=== PATIENT | male | born 1960 | race Caucasian/White ===

== ENCOUNTER 2016-10-27 18:39 | Inpatient (IN) | payer OTHER ==
[~2016-10-27] VITALS: Ht 177.8 cm; Wt 49.6 kg
--- NOTE | ~2016-10-27 | CON ---
[place], [place] REPORT OF CONSULTATION NAME: JOAO [facility]ERRELL [facility]: [id number] UNIT #: [id number] ROOM: [facility] DOCTOR: YANNI MIXON ED.D) BIRTHDATE: [birth year] DOS: 10/28/2016 HISTORY OF PRESENT ILLNESS: The patient is a 56-year-old male referred by the hospitalist for competency evaluation. At the present time, this patient is on the 4th floor at [facility]. He is and has 2 children. According to his mother who is still living along with his father, the patient's left him many years ago and he has been depressed and drinking excessively since that time. His last family physician is Dr. Helms and his medical history is pertinent for alcohol dependence, COPD, asthma and depression and altered mental status. He drinks excessively, although he will not admit how much he does smoke. This patient was awake, alert and oriented to person only. [facility] indicated [facility] and the year was [facility]. I spoke extensively to his mother. She stated that several weeks ago, he was fine and he has a tendency to drink excessively and then quit drinking and then he will become very confused. His apartment apparently was in quite deplorable condition. He has been apparently evicted from his apartment. His brother, Charles, also looks after the patient. He will most likely need a place to live and I did discuss this with case management services here at the hospital. He is clearly not competent to make informed healthcare decisions and all decision should be deferred to his family. In my opinion, due to his depression, he most likely would be a candidate for the [facility] once he is medically stable. I did discuss this with the hospitalist and made the recommendation. 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 He apparently has no contact with his children, according to him. DIAGNOSES: 1. Alcohol withdrawal delirium. 2. Major depressive disorder, recurrent. RECOMMENDATIONS: 1. In my opinion, this patient may benefit from the [facility] once he is medically stable. 2. If he does not need inpatient Behavioral Health, he should be referred to outpatient drug and alcohol along with Mental Health Services. Thank you very much for this consult. YANNI MIXON ED.D CM:CONSTR:REPORT OF CONSULTATION 1208 10/28/16 2353 interface
[~2016-10-27 18:39] MED LIST: CLINDAMYCIN HC300 MG PO; HYDROCODONE BIT1 T11 PO; KEFLEX125 MG/5 M PO; NAPROSYN500 MG PO; NORCO 325 MG-51 TAB PO; PEN-VK500 MG PO
[2016-10-27 19:14] VITALS: BP 97/69
[2016-10-27 20:01] VITALS: BP 96/71
[2016-10-27 20:05] LABS: BASO % 0.4 % (0.0-1.0); EOS % 0.1 % (1.0-4.0); HEMATOCRIT 37.6 % (42.0-52.0); HEMOGLOBIN 13.5 g/dl (14.0-18.0); LYMPH # 0.7 10*3/uL (1.3-4.4); LYMPH % 10.8 % (27.0-41.0); MEAN CELL VOLUME 100.5 fl (80.0-94.0); MEAN CORPUSCULAR HGB 36.1 pg (27.0-31.0); MEAN CORPUSCULAR HGB CONC 35.9 g/dl (33.0-37.0); MEAN PLATELET VOLUME 9.2 fl (9.6-12.3); MONO # 0.3 10*3/uL (0.1-1.0); MONO % 4.7 % (3.0-9.0); NEUT # 5.7 10*3/uL (2.3-7.9); NEUT % 83.6 % (47.0-73.0); PLATELET COUNT AUTOMATED 295 10*3/uL (130-400); RED BLOOD COUNT 3.74 10*6/uL (4.50-5.90); RED CELL DISTRI WIDTH 12.7 % (0-14.5); WHITE BLOOD COUNT 6.8 10*3/uL (4.8-10.8)
[2016-10-27 20:22] LABS: ALBUMIN 3.1 gm/dl (3.1-4.5); ALKALINE PHOSPHATASE 123 U/L (45-117); BUN 12 mg/dl (7-24); CARBON DIOXIDE 20 mmol/L (21-32); CHLORIDE 94 mmol/L (98-107); CKMB 0.8 ng/ml (0.5-3.6); CPK 45 U/L (39-308); EST GLOM FILT AFRICAN AMERICAN > 60 ml/min; GLUCOSE 100 mg/dL (65-99); LDH 225 U/L (87-241); MAGNESIUM 2.2 mg/dL (1.5-2.1); POTASSIUM 3.7 mmol/L (3.5-5.1); SGOT/AST 35 IU/L (3-35); SGPT/ALT 40 U/L (12-78); SODIUM 132 mmol/L (136-145); TOTAL PROTEIN 7.2 gm/dL (6.4-8.2)
[2016-10-27 20:23] LABS: TROPONIN I < 0.015 ng/ml (<0.045)
[2016-10-27 20:53] VITALS: BP 120/80
[2016-10-27 21:33] VITALS: BP 108/85
[2016-10-27 22:03] LABS: LA>2 REFLEX 2 HR DRAW NOW
[2016-10-27 22:17] VITALS: BP 116/98
[2016-10-27 22:45] VITALS: BP 128/82
[2016-10-28 00:32] LABS: LA>2 RFLX FOLLOW UP AT 2 HRS 2.4 mmol/L (0.4-2.0)
[2016-10-28 00:50] LABS: CKMB 1.3 ng/ml (0.5-3.6)
[2016-10-28 00:52] LABS: CPK 31 U/L (39-308); TROPONIN I < 0.015 ng/ml (<0.045)
[2016-10-28 02:23] LABS: LA>2 REFLEX 4 HR DRAW NOW
[2016-10-28 02:29] LABS: BASO % 0.4 % (0.0-1.0); EOS % 0.4 % (1.0-4.0); HEMATOCRIT 31.9 % (42.0-52.0); HEMOGLOBIN 11.8 g/dl (14.0-18.0); LYMPH % 12.3 % (27.0-41.0); MEAN CELL VOLUME 99.1 fl (80.0-94.0); MEAN CORPUSCULAR HGB 36.6 pg (27.0-31.0); MEAN PLATELET VOLUME 9.2 fl (9.6-12.3); MONO # 0.5 10*3/uL (0.1-1.0); MONO % 5.9 % (3.0-9.0); NEUT # 6.4 10*3/uL (2.3-7.9); NEUT % 80.5 % (47.0-73.0); PLATELET COUNT AUTOMATED 275 10*3/uL (130-400); RED BLOOD COUNT 3.22 10*6/uL (4.50-5.90); RED CELL DISTRI WIDTH 12.7 % (0-14.5); WHITE BLOOD COUNT 7.9 10*3/uL (4.8-10.8)
[2016-10-28 02:39] LABS: INTERNATIONAL NORM RATIO 1.1 (2.0-3.5); PROTHROMBIN TIME 11.3 SECONDS (9.0-12.4)
[2016-10-28 02:51] LABS: HEMOGLOBIN A1c 5.1 % (4.8-5.6)
[2016-10-28 02:56] LABS: ALBUMIN 2.9 gm/dl (3.1-4.5); ALKALINE PHOSPHATASE 115 U/L (45-117); BILIRUBIN, TOTAL 0.8 mg/dl (0.2-1.0); BUN 12 mg/dl (7-24); CARBON DIOXIDE 20 mmol/L (21-32); CHLORIDE 98 mmol/L (98-107); CHOLESTEROL 112 mg/dL (<200); EST GLOM FILT AFRICAN AMERICAN > 60 ml/min; FREE T4 1.08 ng/dl (0.76-1.46); GLUCOSE 90 mg/dL (65-99); HDL CHOLESTEROL 51 mg/dl (40-60); LDL CHOLESTEROL 44 mg/dL (9-159); MAGNESIUM 2.1 mg/dL (1.5-2.1); SGOT/AST 28 IU/L (3-35); SGPT/ALT 36 U/L (12-78); SODIUM 135 mmol/L (136-145); TOTAL PROTEIN 6.7 gm/dL (6.4-8.2); TRIGLYCERIDES 86 mg/dl (<150); VLDL CHOLESTEROL 17 mg/dL (6-40)
[2016-10-28 03:00] LABS: THYROID STIM HORMONE (HS) 0.922 uIU/ml (0.358-4.75)
[2016-10-28 03:11] LABS: VITAMIN D, 25-HYDROXY 8.1 ng/mL (30-100)
[2016-10-28 03:12] LABS: FOLIC ACID 10.48 ng/mL (>5.38)
[2016-10-28 04:00] VITALS: BP 108/76
[2016-10-28 06:35] LABS: CKMB 1.2 ng/ml (0.5-3.6); CPK 25 U/L (39-308); TROPONIN I < 0.015 ng/ml (<0.045)
[2016-10-28 08:00] VITALS: BP 113/57
[2016-10-28 12:00] VITALS: BP 133/79
[2016-10-28 12:55] LABS: CKMB 1.4 ng/ml (0.5-3.6); CPK 34 U/L (39-308); TROPONIN I < 0.015 ng/ml (<0.045)
[2016-10-28 16:00] VITALS: BP 129/81
[2016-10-28] MEDS ORDERED: VITAMIN B-11 TAB PO (17:37)
[2016-10-28] MEDS ORDERED: THERA TABS1 TAB PO (17:37)
[2016-10-28] MEDS ORDERED: NATURE'S BLEND F1 MG PO (17:37)
== END 2016-10-28 19:24 | disposition short-term general hospital (02) | DRG 896 ==
LOC: ED 18:39 → 4E 21:55 → EDHOLD 21:55 → 4E 22:09 → ICCU 10-28 14:24
PROVIDERS: Family Medicine; Physician Assistant
DX: F10.231 Alcohol dependence with withdrawal delirium (principal); G93.41 Metabolic encephalopathy; E87.2 Acidosis; R65.10 Systemic inflammatory response syndrome (SIRS) of non-infectious origin without acute organ dysfunction; E44.1 Mild protein-calorie malnutrition; F33.9 Major depressive disorder, recurrent, unspecified; E87.1 Hypo-osmolality and hyponatremia; D72.810 Lymphocytopenia; E83.41 Hypermagnesemia; D53.9 Nutritional anemia, unspecified; F17.200 Nicotine dependence, unspecified, uncomplicated; J44.9 Chronic obstructive pulmonary disease, unspecified; Z68.21 Body mass index [BMI] 21.0-21.9, adult